=== PATIENT | male | born 1965 | race Hispanic/Latino ===

== ENCOUNTER 2022-09-21 08:43 | Outpatient (CLI) | payer BC ==
[2022-09-21] MEDS ORDERED: Magnevist 469MG/ML 20 ML VIAL ONE (09:01)
== END 2022-09-21 08:44 | disposition home or self-care (01) ==
LOC: CSHMRI 08:43
PROVIDERS: ATTEND Urology
DX: R97.20 Elevated prostate specific antigen [PSA] (principal); Z98.890 Other specified postprocedural states
CPT/HCPCS: 72197; A9579